=== PATIENT | male | born 1980 | race Caucasian/White ===

== ENCOUNTER → 2023-01-21 | Outpatient (CLI) | payer BC ==
--- NOTE | 2023-01-21 12:04 | Diagnostic Imaging Report ---
PROCEDURE: CT abdomen and pelvis with and without contrast. TECHNIQUE: Precontrast acquisitions were acquired through the abdomen and pelvis. Multiple contiguous axial images were obtained through the abdomen and pelvis after the administration of intravenous contrast. Auto Exposure Controls were utilized during the CT exam to meet ALARA standards for radiation dose reduction. INDICATION: Left flank pain. FINDINGS: There is mild asymmetric enlargement of the left kidney. Multiple punctate stones measuring up to 4 mm in size are seen in the upper pole of the left kidney with mild to moderate left hydronephrosis and left hydroureter to the level of two additional calculi measuring up to 0.4 cm in size with one at the ureterovesical junction. Otherwise, there is no evidence of focal hepatic, gallbladder, pancreatic, adrenal gland, or splenic abnormality. The right kidney is unremarkable. There is no free fluid in the abdomen or pelvis. No appendiceal inflammation is identified. No bladder stone is seen. IMPRESSION: Left nephrolithiasis with at least a partially obstructing 4 mm stone at the left ureterovesical junction and an additional slightly smaller stone in the distal left ureter. Dictated by: Dictated on workstation # [id number]
== END ==
LOC: RAD 10:51
PROVIDERS: ATTEND Family Medicine
DX: N20.2 Calculus of kidney with calculus of ureter (principal); R10.10 Upper abdominal pain, unspecified; R10.32 Left lower quadrant pain
CPT/HCPCS: 74178